=== PATIENT | male | born 1965 | race Caucasian/White ===

== ENCOUNTER 2018-05-01 08:27 | Emergency (ER) | payer BC ==
--- NOTE | 2018-05-01 08:44 | EDM.PDOC ---
ED HPI GENERAL MEDICAL PROBLEM - General Chief Complaint: Eye Problems Stated Complaint: DEBRIS IN RIGHT EYE Time Seen by Provider: 05/01/18 08:44 Source of Information: Reports: Patient - History of Present Illness INITIAL COMMENTS - FREE TEXT/NARRATIVE: HISTORY AND PHYSICAL: History of present illness: [Patient was working in his shop yesterday, he had done some cutting was removing some slight from pipe with a chipping hammer he had a couple small pieces of debris in his right eye these were easily removed with a Q-tip no embedded foreign body no hyphema mildly injected sclera left eye is clear exam is with what looks lamp and fluorescein No other injury no fever nausea vomiting chills sweats no visual change ] Review of systems: As per history of present illness and below otherwise all systems reviewed and negative. Past medical history: As per history of present illness and as reviewed below otherwise noncontributory. Surgical history: As per history of present illness and as reviewed below otherwise noncontributory. Social history: No reported history of drug or alcohol abuse. Family history: As per history of present illness and as reviewed below otherwise noncontributory. Physical exam: HEENT: Atraumatic, normocephalic, pupils reactive, negative for conjunctival pallor or scleral icterus, mucous membranes moist, throat clear, neck supple, nontender, trachea midline. I examined as per history of present illness Lungs: Clear to auscultation, breath sounds equal bilaterally, chest nontender. Heart: S1S2, regular, negative for clicks, rubs, or JVD. Abdomen: Soft, nondistended, nontender. Negative for masses or hepatosplenomegaly. Negative for costovertebral tenderness. Pelvis: Stable nontender. Genitourinary: Deferred. Rectal: Deferred. Extremities: Atraumatic, negative for cords or calf pain. Neurovascular unremarkable. Neuro: Awake, alert, oriented. Cranial nerves II through XII unremarkable. Cerebellum unremarkable. Motor and sensory unremarkable throughout. Exam nonfocal. Diagnostics: [Wood's lamp with floors seen] Therapeutics: [Gent ophthalmic] Impression: [Foreign debris right eye-removed without complication Q-tip applicator] Definitive disposition and diagnosis as appropriate pending reevaluation and review of above. Right Eye Pain Score (Numeric/FACES): 5 - Related Data Allergies Allergy/AdvReac Type Severity Reaction Status Date / Time No Known Allergies Allergy Verified 05/01/18 08:50 Home Meds: Home Meds Omeprazole Magnesium [Prilosec Otc] 20 mg PO BID 05/01/18 [History] Past Medical History - Past Health History Medical/Surgical History: Denies Medical/Surgical History ED ROS GENERAL - Review of Systems Review Of Systems: See Below ED EXAM GENERAL W FULL EYE - Physical Exam Exam: See Below Course - Vital Signs Last Recorded V/S: Last Vital Signs Temp 98.1 F 05/01/18 08:47 Pulse 63 05/01/18 08:47 Resp 16 05/01/18 08:47 BP 118/76 05/01/18 08:47 Pulse Ox 97 05/01/18 08:47 - Orders/Labs/Meds Meds: Medications Discontinued Medications Generic Name Dose Route Start Last Admin Trade Name Freq PRN Reason Stop Dose Admin Proparacaine HCl 1 ml 05/01/18 08:47 Proparacaine 0.5% Ophth Soln EYEBOTH 05/01/18 08:48 NOW STA Departure - Departure Time of Disposition: 09:07 Disposition: Home, Self-Care 01 Condition: Good Clinical Impression: Foreign body - Discharge Information Referrals: PCP,None [Primary Care Provider] - Forms: ED Department Discharge Additional Instructions: The following information is given to patients seen in the emergency department who are being discharged to home. This information is to outline your options for follow-up care. We provide all patients seen in our emergency department with a follow-up referral. The need for follow-up, as well as the timing and circumstances, are variable depending upon the specifics of your emergency department visit. If you don't have a primary care physician on staff, we will provide you with a referral. We always advise you to contact your personal physician following an emergency department visit to inform them of the circumstance of the visit and for follow-up with them and/or the need for any referrals to a consulting specialist. The emergency department will also refer you to a specialist when appropriate. This referral assures that you have the opportunity for follow-up care with a specialist. All of these measure are taken in an effort to provide you with optimal care, which includes your follow-up. Under all circumstances we always encourage you to contact your private physician who remains a resource for coordinating your care. When calling for follow-up care, please make the office aware that this follow-up is from your recent emergency room visit. If for any reason you are refused follow-up, please contact the [facility] emergency department at and asked to speak to the emergency department charge nurse.
[2018-05-01] MEDS ORDERED: Proparacaine 0.5% Ophth Soln 15 ML Bottle EYEBOTH STA (08:47)
== END 2018-05-01 09:17 | disposition home or self-care (01) ==
LOC: MW.ED 08:27
DX: T15.91XA Foreign body on external eye, part unspecified, right eye, initial encounter (principal)
CPT/HCPCS: 99283

== ENCOUNTER 2020-10-27 18:05 | Emergency (ER) | payer BC ==
[2020-10-27] MEDS ORDERED: Morphine 4 MG/ML Syringe IVPUSH ONE (18:09)
[2020-10-27] MEDS ORDERED: Sodium Chloride 0.9% 2.5 ML Syringe FLUSH PRN (18:09)
[2020-10-27] MEDS ORDERED: Sodium Chloride 0.9% 1,000 ML IV ONE (18:09)
[2020-10-27] MEDS ORDERED: Sodium Chloride 0.9% 10 ML Syringe FLUSH PRN (18:09)
[2020-10-27] MEDS ORDERED: Ondansetron 4 MG/2 ML SDV IVPUSH ONE (18:09)
--- NOTE | 2020-10-27 18:20 | EDM.PDOC ---
<Maxx Govea - Last Filed: 10/27/20 20:24> ED HPI GENERAL MEDICAL PROBLEM - General Chief Complaint: Chest Pain Stated Complaint: CHEST PAIN, TROUBLE BREATHING Time Seen by Provider: 10/27/20 18:05 - History of Present Illness INITIAL COMMENTS - FREE TEXT/NARRATIVE: 7 PM: Signout received by me. Chart reviewed and patient evaluated. 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 I went to evaluate the patient and he appears confused regarding why he is here. Patient reports he is able to verbalize to me that he is in the hospital but is not sure how he came here. Patient reports last thing he recalls was driving with his Gator to feed his cattle. After that he reports all the details are extremely fuzzy and unclear as to how he ended up here in the hospital. Patient reports he has had no history of hypertension, diabetes, liver, kidney problems. Patient reports he does have a history of a spontaneous pneumothorax in the past. Patient reports he used to work in the [employer]. 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 Patient denies any tobacco, alcohol, drugs. Patient denies any history of seizure disorders, strokes, heart attacks. Patient denies any recent fevers, shakes, chills, nausea, vomiting, diarrhea. Patient is complaining of sharp pain to the right side of his chest above his right nipple. Patient denies any cough cold or rhinorrhea. Patient denies any dysuria, frequency, urgency. Patient has any abdominal pain. Patient reports he has been tolerating p.o. solids and liquids without difficulty. Patient denies any known Covid or coronavirus exposures. Some history is obtained from his son. His son reports that the patient's called him and when he answer the phone he was extremely confused and not acting appropriately. She then hung up the phone and called the son to go tow picker his father. Upon arrival to tow picker his father, the son reports that his father was walking around on the land somewhat confused and not acting appropriate. The son reports that his father went out to feed his cattle and that the cattle are extremely pain and does not suspect that he was injured by trauma from one of the cattle. Neither the patient nor the son were able to verbalize to me how he received the laceration to his chin and neither were actually aware of it until it was brought to their attention by us. Patient's physical exam in the ED is significant for a well-developed well- nourished male who appears to be resting comfortably in his bed. Patient appears to startle extremely easily. On multiple occasions, whenever he is gently touched by one of the staff he jumps and screams. When I was sitting over his bed he opened his eyes and saw me and was extremely startled and screened as well. This appears to be extremely unusual behavior per the son's report. Patient does have a 1 cm laceration to his chin. Patient reports his tetanus status is up-to-date and had a proxy 1 year ago. Constitutional: Patient is oriented to person, place, and time. Appears well- developed and well-nourished. No distress. HEENT: Moist mucous membranes Head: Normocephalic and atraumatic Eyes: Right eye exhibits no discharge. Left eye exhibits no discharge. No scleral icterus Neck: Normal range of motion. No tracheal deviation present. Cardiovascular: Normal rate and regular rhythm. Pulmonary: Effort normal, no respiratory distress. Abdominal: No distention Musculoskeletal: Normal range of motion Neurologic: Alert and oriented to person, place and time. Skin: [place], warm and dry. Psychiatric: Normal mood and affect. Behavior is normal. Judgment and thought content normal. Nursing note and vital signs have been reviewed Patient has no C-spine T-spine or L-spine tenderness to palpation. Patient has no left upper or right upper quadrant tenderness to palpation. Patient has no crepitus to palpation to the anterior chest wall. Patient is neurologically intact. Patient does not present with any signs or or symptoms that would be consistent with acute intracranial, intra-abdominal, intrathoracic, or long bone injury. All long bones have been palpated and range of motion been performed and there is no evidence of any acute pathology. 7:49 PM: Called to see patient secondary to unresponsive episode. Upon entrance into the room, the patient's monitor appeared to be V. fib with patient having some mild tonic jerks. Patient was unresponsive, and apneic at the time. Patient's V. fib episode on the monitor lasted for approximately 30 seconds followed by sinus bradycardia and back to sinus rhythm. During patient's episode of sinus bradycardia, there was a palpable radial pulse matching the monitor. After approximately 30 seconds of patient being back in sinus rhythm he started having normal respirations. Patient appeared once again confused asking where he was. Patient was slightly diaphoretic at that time. Patient was not experiencing any worsening chest discomfort or shortness of breath at that time. Repeat EKG was performed which revealed no significant changes from his prior EKG today. EKG: As interpreted by ER physician: Jeferson: Nonspecific ST-T wave abnormalities Normal axis No evidence of ST elevation VT Normal sinus rhythm heart rate of 82 8:08 PM: Patient been reevaluated by me multiple times and is currently sitting up in bed in no acute distress. Patient has had episode of V. fib arrest and has been given 150 mg of amiodarone bolus as well as an amiodarone drip. Patient will need definitive diagnosis through cardiology consultation and likely defibrillator/cardiac catheterization. I have discussed the case with Dr. Shelley at [facility] and he is agreed to accept patient in transfer to assist with cardiac evaluation. We will defer CT scan of the thorax at this time as patient will need to be transferred on an emergent basis to [facility] where definitive treatment can be accomplished if should have further episodes of V. fib arrest. CT of the thorax to rule out dissection and other pathology within the heart can be performed at that time. Critical Care: The high probability of sudden, clinically significant deterioration in the patient's condition required the highest level of my preparedness to intervene urgently. The services I provided to this patient were to treat and/or prevent clinically significant deterioration. Services included the following: chart data review, reviewing nursing notes and/or old charts, documentation time, automobile sales consultant collaboration regarding findings and treatment options, medication orders and management, direct patient care, vital sign assessments and ordering, interpreting and reviewing diagnostic studies/lab tests. Aggregate critical care time includes only time during which I was engaged inwork directly related to the patient's care, as described above, whether at the bedside or elsewhere in the Emergency Department. It did not include time spent performing other reported procedures or the services of residents, students, nurses or physician assistants. Critical Care Time: 35 minutes - Related Data Allergies Allergy/AdvReac Type Severity Reaction Status Date / Time No Known Allergies Allergy Verified 05/01/18 08:50 Home Meds: Home Meds Omeprazole Magnesium [Prilosec Otc] 20 mg PO BID 05/01/18 [History] ED ROS GENERAL - Review of Systems Review Of Systems: See Below ED GENERAL MEDICAL PROCEDURES - Laceration/Wound Repair Face Lac/wound length in cm: 2 Appearance: Linear Distal NVT: Neuro & Vascular Intact Anesthetic Type: Local Local Anesthesia - Lidocaine (Xylocaine): 1% Plain Local Anesthetic Volume: 2cc Skin Prep: Chlorhexidine (Hibiciens), Saline Saline irrigation (cc's): 100 Closed with: Sutures Suture Size: 4-0 # of Sutures: 1 Suture Type: Prolene, Simple Progress/Comments: I have discussed the laceration with the patient's son and he is aware that he will need to have suture removed in 7 to 10 days. #2 Interpretation EKG Interpretation Comments: EKG: As interpreted by ER physician: Jeferson: Nonspecific ST-T wave abnormalities Normal axis No evidence of ST elevation VT Normal sinus rhythm heart rate of 82 Departure - Departure Time of Disposition: 20:10 Disposition: DC/Tfer to Acute Hospital 02 Clinical Impression: Ventricular fibrillation, Cardiac arrest with ventricular fibrillation, Syncope, Head injury, Laceration of chin - Discharge Information Referrals: PCP,None [Primary Care Provider] - Forms: ED Department Discharge <Jeison Obando - Last Filed: 10/28/20 07:13> ED HPI GENERAL MEDICAL PROBLEM - History of Present Illness INITIAL COMMENTS - FREE TEXT/NARRATIVE: 55-year-old male presenting with very limited history. Patient was reportedly found down in a field nearby and was driven here by bystanders. Patient initially at triage pointed to his chest but just kept saying I do not know and was unable to give any history. 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 At 1 point he said that he takes a medicine for GERD told me that a couple years ago he had a collapsed lung. Further history is unavailable due to patient's confusion. Past Medical History - Past Health History Medical/Surgical History: Denies Medical/Surgical History Respiratory History: Reports: Other (See Below) Other Respiratory History: collapsed lung Gastrointestinal History: Reports: GERD - Infectious Disease History Infectious Disease History: Reports: Chicken Pox, Mumps Social & Family History - Family History Family Medical History: No Pertinent Family History ED ROS GENERAL - Review of Systems Review Of Systems: Unable To Obtain Reason Not Obtained: Confusion ED EXAM, GENERAL - Physical Exam Exam: See Below Free Text/Narrative:: General Appearance: Tachypneic Skin: No rash HEENT: Normocephalic/atraumatic, sclera anicteric, mucous membranes dry Neck: Normal range of motion Chest and Lungs: Bilateral breath sounds, clear to auscultation at the anterior apices, tachypneic Cardiovascular: Regular rate and rhythm, no murmur Abdomen: Soft, non-tender Back: Normal Musculoskeletal: No edema or tenderness Neurologic: Awake, alert, but disoriented, knows year he was born but not his age unable to answer basic questions but will follow commands. Psychiatric: cooperative #1 Interpretation EKG Date: 10/27/20 Time: 18:10 EKG Interpretation Comments: Normal sinus rhythm with a rate of 79 normal intervals and axis without findings of acute ischemia Course - Vital Signs Last Recorded V/S: Last Vital Signs Temp 98.8 F 10/27/20 18:20 Pulse 77 10/27/20 18:20 Resp 28 H 10/27/20 18:20 BP Pulse Ox 99 10/27/20 18:20 - Orders/Labs/Meds Orders: Active Orders 24 hr Category Date Time Status Saline Lock Insert [OM.PC] Stat Oth 10/27/20 18:09 Ordered Labs: Laboratory Tests 10/27/20 10/27/20 10/27/20 Range/Units 18:46 18:46 18:46 WBC 13.61 H (4.0-11.0) K/uL RBC 5.04 (4.50-5.90) M/uL Hgb 15.1 (13.0-17.0) g/dL Hct 42.7 (38.0-50.0) % MCV 84.7 (80.0-98.0) fL MCH 30.0 (27.0-32.0) pg MCHC 35.4 (31.0-37.0) g/dL RDW Std Deviation 41.0 (28.0-62.0) fl RDW Coeff of Rea 14 (11.0-15.0) % Plt Count 178 (150-400) K/uL MPV 9.60 (7.40-12.00) fL Neut % (Auto) 80.6 H (48.0-80.0) % Lymph % (Auto) 11.0 L (16.0-40.0) % [place] % (Auto) 7.9 (0.0-15.0) % Eos % (Auto) 0.4 (0.0-7.0) % Baso % (Auto) 0.1 (0.0-1.5) % Neut # (Auto) 11.0 H (1.4-5.7) K/uL Lymph # (Auto) 1.5 (0.6-2.4) K/uL [place] # (Auto) 1.1 H (0.0-0.8) K/uL Eos # (Auto) 0.1 (0.0-0.7) K/uL Baso # (Auto) 0.0 (0.0-0.1) K/uL Nucleated RBC % 0.0 /100WBC Nucleated RBCs # 0 K/uL INR APTT (18.6-31.3) SEC Sodium 137 (136-148) mmol/L Potassium 3.5 (3.5-5.1) mmol/L Chloride 101 (98-107) mmol/L Carbon Dioxide 26.5 (21.0-32.0) mmol/L BUN 22 H (7.0-18.0) mg/dL Creatinine 1.0 (0.8-1.3) mg/dL Est Cr Clr Drug Dosing 84.15 mL/min Estimated GFR (MDRD) > 60.0 ml/min Glucose 119 H (74-106) mg/dL Calcium 9.3 (8.5-10.1) mg/dL Magnesium 1.5 L (1.8-2.4) mg/dL Total Bilirubin 0.5 (0.2-1.0) mg/dL AST 33 (15-37) IU/L ALT 38 (14-63) IU/L Alkaline Phosphatase 71 (46-116) U/L Troponin I < 0.050 (0.000-0.056) ng/mL B-Natriuretic Peptide 16 (<100) PG/ML Total Protein 7.1 (6.4-8.2) g/dL Albumin 4.0 (3.4-5.0) g/dL Globulin 3.1 (2.6-4.0) g/dL Albumin/Globulin Ratio 1.3 (0.9-1.6) Lipase 87 (73-393) U/L Ethyl Alcohol mg/dL Influenza Type A RNA (NEGATIVE) Influenza Type B RNA (NEGATIVE) SARS-CoV-2 RNA (STEPHAN) (NEGATIVE) 10/27/20 10/27/20 10/27/20 Range/Units 18:46 18:46 19:07 WBC (4.0-11.0) K/uL RBC (4.50-5.90) M/uL Hgb (13.0-17.0) g/dL Hct (38.0-50.0) % MCV (80.0-98.0) fL MCH (27.0-32.0) pg MCHC (31.0-37.0) g/dL RDW Std Deviation (28.0-62.0) fl RDW Coeff of Rea (11.0-15.0) % Plt Count (150-400) K/uL MPV (7.40-12.00) fL Neut % (Auto) (48.0-80.0) % Lymph % (Auto) (16.0-40.0) % [place] % (Auto) (0.0-15.0) % Eos % (Auto) (0.0-7.0) % Baso % (Auto) (0.0-1.5) % Neut # (Auto) (1.4-5.7) K/uL Lymph # (Auto) (0.6-2.4) K/uL [place] # (Auto) (0.0-0.8) K/uL Eos # (Auto) (0.0-0.7) K/uL Baso # (Auto) (0.0-0.1) K/uL Nucleated RBC % /100WBC Nucleated RBCs # K/uL INR 1.05 APTT 21.6 (18.6-31.3) SEC Sodium (136-148) mmol/L Potassium (3.5-5.1) mmol/L Chloride (98-107) mmol/L Carbon Dioxide (21.0-32.0) mmol/L BUN (7.0-18.0) mg/dL Creatinine (0.8-1.3) mg/dL Est Cr Clr Drug Dosing mL/min Estimated GFR (MDRD) ml/min Glucose (74-106) mg/dL Calcium (8.5-10.1) mg/dL Magnesium (1.8-2.4) mg/dL Total Bilirubin (0.2-1.0) mg/dL AST (15-37) IU/L ALT (14-63) IU/L Alkaline Phosphatase (46-116) U/L Troponin I (0.000-0.056) ng/mL B-Natriuretic Peptide (<100) PG/ML Total Protein (6.4-8.2) g/dL Albumin (3.4-5.0) g/dL Globulin (2.6-4.0) g/dL Albumin/Globulin Ratio (0.9-1.6) Lipase (73-393) U/L Ethyl Alcohol <3 mg/dL Influenza Type A RNA NEGATIVE (NEGATIVE) Influenza Type B RNA NEGATIVE (NEGATIVE) SARS-CoV-2 RNA (STEPHAN) NEGATIVE (NEGATIVE) Meds: Medications Discontinued Medications Generic Name Dose Route Start Last Admin Trade Name Freq PRN Reason Stop Dose Admin Aspirin 324 mg 10/27/20 19:47 10/27/20 19:58 Aspirin PO 10/27/20 19:48 324 mg ONETIME ONE Administration Amiodarone HCl 150 mg/ 103 mls @ 600 mls/hr 10/27/20 19:27 10/27/20 20:15 Dextrose/Water IV 10/27/20 19:37 Not Given .BOLUS ONE Amiodarone HCl/Dextrose 360 mg in 200 mls @ 33.333 mls/hr 10/27/20 19:30 10/27/20 20:24 Nexterone In Dextrose 360 Mg/200 Ml IV 1 mg/min ASDIRECTED HAKEEM 33.333 mls/hr Administration Protocol 1 MG/MIN Amiodarone HCl/Dextrose Confirm 10/27/20 19:53 10/27/20 19:58 Nexterone In Dextrose 150 Mg/100 Ml Administered 10/27/20 19:54 Not Given Dose 100 mls @ as directed IV .STK-MED ONE Amiodarone HCl/Dextrose Confirm 10/27/20 19:53 10/27/20 19:59 Nexterone In Dextrose 360 Mg/200 Ml Administered 10/27/20 19:54 Not Given Dose 360 mg in 200 mls @ as directed .ROUTE .STK-MED ONE Amiodarone HCl/Dextrose 150 mg 100 mls @ 400 mls/hr 10/27/20 20:01 10/27/20 20:02 / Premix IV 10/27/20 20:15 400 mls/hr NOW ONE Administration Protocol Amiodarone HCl/Dextrose 360 mg in 200 mls @ 33.333 mls/hr 10/27/20 20:15 Nexterone In Dextrose 360 Mg/200 Ml IV ASDIRECTED HAKEEM Protocol 1 MG/MIN Sodium Chloride 1,000 mls @ 999 mls/hr 10/27/20 18:09 10/27/20 18:09 Normal Saline IV 10/27/20 19:09 999 mls/hr .Bolus ONE Administration Sodium Chloride 1,000 mls @ 50 mls/hr 10/27/20 20:40 10/27/20 23:40 Normal Saline IV 50 mls/hr ASDIRECTED HAKEEM Administration Lidocaine HCl Confirm 10/27/20 20:15 10/27/20 20:18 Xylocaine-Mpf 1% Administered 10/27/20 20:16 Not Given Dose 5 ml .ROUTE .STK-MED ONE Lidocaine HCl 5 ml 10/27/20 20:19 10/27/20 21:05 Xylocaine-Mpf 1% INJECT 10/27/20 20:20 5 ml ONETIME ONE Administration Morphine Sulfate 4 mg 10/27/20 18:09 10/27/20 18:48 Morphine IVPUSH 10/27/20 18:10 4 mg ONETIME ONE Administration Ondansetron HCl 4 mg 10/27/20 18:09 10/27/20 18:47 Zofran IVPUSH 10/27/20 18:10 4 mg ONETIME ONE Administration Sodium Chloride 10 ml 10/27/20 18:09 10/27/20 18:51 Saline Flush FLUSH 10 ml ASDIRECTED PRN Administration Keep Vein Open Sodium Chloride 2.5 ml 10/27/20 18:09 10/27/20 18:51 Saline Flush FLUSH 2.5 ml ASDIRECTED PRN Administration Keep Vein Open Critical Care Note - Critical Care Note Total Time (mins): 45 Comments: Patient presents with acutely altered mental status chest pain multiple potential critical differentials needed to be considered and excluded. Multiple reassessments were necessary with ongoing replacement evaluation. - My Orders Last 24 Hours: My Active Orders 10/27/20 18:09 Saline Lock Insert [OM.PC] Stat - Assessment/Plan Last 24 Hours: My Active Orders 10/27/20 18:09 Saline Lock Insert [OM.PC] Stat Assessment:: 55-year-old male presenting with altered mental status. He is awake and alert his speech is not halting he does not seem to have dysphagia or dysarthria he moves all 4 extremities well he presents more as encephalopathic then with any type of laterality or focal neurologic deficit that would suggest stroke. Seizure with postictal state is a consideration. However the patient does not show a diminished level of consciousness that would be typical for postictal state. Drug or alcohol intoxication is possible the patient does not clearly fit the picture of any common intoxication. He does have dry mucous membranes appears clinically dehydrated. His EKG is without any acute ischemia chest x- ray is pending he is not complaining of severe chest or back pain that would suggest aortic dissection. Morphine Zofran ordered for his apparent discomfort CT scan of the brain CBC, CMP, chest x-ray ordered. Patient does have a laceration to his chin is noted this raises the possibility of a fall either as a cause or consequence of the underlying etiology. 1825: Chest x-ray with diffuse irregularity multifocal pneumonia is a consideration pulmonary edema is a consideration BNP and Covid testing added. Patient's respiratory rate improved when he was set up with a chest x-ray. 1850: The patient remains awake and alert with stable vital signs. He is somewhat more lucid but remains confused. Labs pending. Pt signed out to Dr. Govea pending lab results and final disposition.
--- NOTE | 2020-10-27 18:57 | CR ---
Indication: Chest pain Comparison: None available. Technique: Single AP view chest Findings: There is hyperinflation and chronic interstitial change. There are mildly prominent interstitial markings likely representing pulmonary vascular congestion. There is no pneumothorax or pleural effusion. The cardiac silhouette is mildly prominent. The bony thorax is grossly intact. Impression: Mildly prominent interstitial markings likely representing pulmonary vascular congestion. No evidence of dense consolidation. Dictated by Anjel Osullivan MD @ Oct 27 2020 6:54PM Signed by Dr. Anjel Osullivan @ Oct 27 2020 6:56PM
--- NOTE | 2020-10-27 19:06 | CT ---
INDICATION: Found down in a field. No one knows how long. Disorientated COMPARISON: none TECHNIQUE: A CT volumetric acquisition was performed of the brain without IV contrast. Please note that all CT scans at this facility use dose modulation, iterative reconstruction, and/or weight-based dosing when appropriate to reduce radiation dose to as low as reasonably achievable. FINDINGS: The CT images reveal a normal appearance of the cerebral ventricles and basal cisterns. There is no evidence of intracranial hemorrhage, tissue infarction or mass effect. The mastoid air cells and middle ear cavities are clear. The calvarium appears intact. There is normal aeration of the visualized paranasal sinuses. IMPRESSION: Negative head CT. Please note that all CT scans at this facility use dose modulation, iterative reconstruction, and/or weight-based dosing when appropriate to reduce radiation dose to as low as reasonably achievable. Dictated by Richard Ahuja MD @ Oct 27 2020 7:02PM Signed by Dr. Richard Ahuja @ Oct 27 2020 7:04PM
[2020-10-27 19:22] LABS: BLOOD UREA NITROGEN,BUN 22 mg/dL (7.0-18.0); CARBON DIOXIDE,CO2 26.5 mmol/L (21.0-32.0); CHLORIDE,CL 101 mmol/L (98-107); GLUCOSE RANDOM 119 mg/dL (74-106); LIPASE 87 U/L (73-393); POTASSIUM,K 3.5 mmol/L (3.5-5.1); SODIUM,NA 137 mmol/L (136-148)
[2020-10-27] MEDS ORDERED: Amiodarone 150 MG in Dextrose 5% in Water 100 ML IV ONE ×2 (19:27)
[2020-10-27] MEDS ORDERED: Aspirin 81 MG Tab.Chew PO ONE (19:47)
[2020-10-27 19:52] LABS: CORONAVIRUS COVID-19 NAA NEGATIVE (NEGATIVE); INFLUENZA A NAA NEGATIVE (NEGATIVE); INFLUENZA B NAA NEGATIVE (NEGATIVE)
[2020-10-27] MEDS ORDERED: Amiodarone In Dextrose,Iso-Osm 150 MG in Premix Bag 1 BAG IV ONE ×2 (20:01)
[2020-10-27] MEDS ORDERED: Lidocaine HCl/PF 10 MG/ML SDV INJECT ONE (20:17)
[2020-10-27] MEDS ORDERED: Sodium Chloride 0.9% 1,000 ML IV SCH (20:40)
--- NOTE | 2020-10-27 20:56 | CT ---
INDICATION: Fall from standing TECHNIQUE: CT cervical spine without contrast. COMPARISON: None FINDINGS: Vertebral alignment: Alignment is normal. Vertebrae: There are no fractures or suspicious bony lesions. Discs and facet joints: There are degenerative disc changes at C4-C6. Extraspinal findings: Paraspinous soft tissues are unremarkable. IMPRESSION: 1. No sign of acute injury. 2. Multilevel degenerative spondylosis. Please note that all CT scans at this facility use dose modulation, iterative reconstruction, and/or weight-based dosing when appropriate to reduce radiation dose to as low as reasonably achievable. Dictated by Sigrid Parsons MD @ Oct 27 2020 8:53PM Signed by Dr. Sigrid Parsons @ Oct 27 2020 8:56PM
== END 2020-10-27 20:56 ==
LOC: MW.ED 18:05
DX: I49.01 Ventricular fibrillation (principal); I46.2 Cardiac arrest due to underlying cardiac condition; S01.81XA Laceration without foreign body of other part of head, initial encounter; Z20.828 Contact with and (suspected) exposure to other viral communicable diseases; K21.9 Gastro-esophageal reflux disease without esophagitis; Z79.899 Other long term (current) drug therapy; X58.XXXA Exposure to other specified factors, initial encounter
CPT/HCPCS: 0240U; 12011; 36415; 70450; 71045; 72125; 80053; 80307; 83690; 83735; 83880; 84484; 85025; 85610; 85730; 93005; 96374; 96375; 99285; A9270; J0282; J2001; J2270; J2405; J7030; 93010; 99291; 99292

== ENCOUNTER 2022-06-12 09:27 | Emergency (ER) | payer BC | END 2022-06-12 11:14 | disposition left against medical advice (07) | LOC: MW.ED 09:27 | DX: R07.9 Chest pain, unspecified (principal); K21.9 Gastro-esophageal reflux disease without esophagitis; Z79.899 Other long term (current) drug therapy | CPT/HCPCS: 71046; 71046-26; 93005; 93010; 99283; 99284 ==

== ENCOUNTER 2022-06-26 15:06 | Emergency (ER) | payer BC ==
[2022-06-26] MEDS ORDERED: Aspirin 81 MG Tab.Chew PO ONE (15:36)
[2022-06-26 16:45] LABS: CARBON DIOXIDE,CO2 28.6 mmol/L (21.0-32.0); POTASSIUM,K 3.9 mmol/L (3.5-5.1)
== END 2022-06-26 17:17 | disposition home or self-care (01) ==
LOC: MW.ED 15:06
DX: R07.89 Other chest pain (principal); Z79.899 Other long term (current) drug therapy; Z20.822 Contact with and (suspected) exposure to COVID-19
CPT/HCPCS: 36415; 71045; 80053; 84484; 85025; 87635; 93005; 99285; A9270; 93010; 99284; U0002

== ENCOUNTER 2022-06-28 09:30 | Emergency (ER) | payer BC ==
[2022-06-28] MEDS ORDERED: Alum Hydro/Mag Hydro/Simeth XS 15 ML, Lidocaine 2% 5 ML PO ONE ×2 (09:54)
[2022-06-28] MEDS ORDERED: Sodium Chloride 0.9% 2.5 ML Syringe FLUSH PRN (09:54)
[2022-06-28] MEDS ORDERED: Sodium Chloride 0.9% 10 ML Syringe FLUSH PRN (09:54)
[2022-06-28 10:39] LABS: CARBON DIOXIDE,CO2 28.1 mmol/L (21.0-32.0)
[2022-06-28] MEDS ORDERED: Iopamidol 755 MG/ML 500 ML Multipack Bottle IVPUSH STA (11:09)
== END 2022-06-28 12:35 | disposition home or self-care (01) ==
LOC: MW.ED 09:30
DX: M94.0 Chondrocostal junction syndrome [Tietze] (principal); K59.00 Constipation, unspecified; K21.9 Gastro-esophageal reflux disease without esophagitis; Z79.899 Other long term (current) drug therapy
CPT/HCPCS: 36415; 71045; 74177; 80053; 80305; 83690; 83735; 83880; 84484; 85025; 93005; 99285; A9270; J3490; Q9967